=== PATIENT | male | born 1960 | race Caucasian/White ===

== ENCOUNTER 2017-03-27 23:33 | Inpatient (IN) | payer OTHER ==
[~2017-03-27] VITALS: Ht 152.4 cm; Wt 74.8 kg
--- NOTE | ~2017-03-27 | CN ---
Consultation Report [facility] [address] [place]. [address] NAME: FRANCISCO GORDON V : 62 STATUS : ADM IN PAT#: [id number] AGE: 57 ADM/REG DATE : 03/28/17 MR#: [id number] REPORT SERV DATE: 04/08/17 DICTATED BY: JESSICA NOVAK DATE: 04/07/17 REPORT STATUS : Draft TRANSCRIBED BY: MODL DATE: 04/07/17 INFECTIOUS DISEASE CONSULT DATE OF CONSULTATION: 04/07/2017 REASON FOR CONSULTATION: Fevers. HISTORY OF PRESENT ILLNESS: This is a 57-year-old man, known to me from consultation back on 03/03/2017, with a past medical history notable for severe stroke in August with resultant hemiparesis and some degree of encephalopathy and chronic tracheostomy. The patient now is on his third admission here since February. He had been in the hospital again from 03/20/2017 through 03/26/2017 and felt to have possible healthcare-associated pneumonia with Acinetobacter and possibly . He received vancomycin and Unasyn in the hospital and was discharged on continued Unasyn, but returned to the hospital on 03/28/2017 with some low-grade fever and worsening respiratory status and was continued on the Unasyn. When sputum culture grew Acinetobacter and MRSA, vancomycin was added on 04/01/2017. The patient's initial chest x-ray though was not very impressive. He did though develop worsening fevers, starting on 03/31/2017 and really has had continued fevers since then. His white blood cell count went up to 19.6 on 04/02/2017, then declined and now is back up again today. He had worsening of his respiratory status yesterday and was transferred from the IM to the MICU. His chest x-rays also have worsened with increasing bibasilar changes, especially on the right. Finally, his procalcitonin has gone from 0.63 on 04/02/2017 to 1.75 today. Repeat sputum cultures done on 04/05/2017 and 04/06/2017 have grown ESBL Klebsiella oxytoca. The patient himself cannot really contribute to the history. PAST MEDICAL HISTORY: Otherwise, unchanged from the consultation of 03/03/2017 and is as noted above. He also has diabetes, chronic anxiety, gastroesophageal reflux, and a PEG tube. ALLERGIES: NO KNOWN DRUG ALLERGIES. PRESENT MEDICATIONS: In addition to the antibiotics mentioned include aspirin, Lipitor, baclofen, Plavix, guaifenesin, heparin subcutaneously, insulin sliding scale, ProAmatine, Protonix, Seroquel, Levemir. SOCIAL HISTORY AND FAMILY HISTORY: Unchanged. REVIEW OF SYSTEMS: Otherwise noncontributory. No significant diarrhea. PHYSICAL EXAMINATION: VITAL SIGNS: Maximum temperature in the last 24 hours was 102.9 yesterday. He is presently afebrile. Blood pressure 97/64, although it has varied and tends to run low even into the 80s fairly often, pulse 107. He weighs 65 kg. The patient is on the ventilator. Arterial Consultation Report [address] [place]. [address] NAME: FRANCISCO GORDON V : 62 STATUS : ADM IN [facility]#: [id number] AGE: 57 ADM/REG DATE : 03/28/17 MR#: [id number] REPORT SERV DATE: 04/08/17 DICTATED BY: JESSICA NOVAK DATE: 04/07/17 REPORT STATUS : Draft TRANSCRIBED BY: ABDOULAYE DATE: 04/07/17 blood gas earlier today pH 7.54, pCO2 of 31, pO2 185 on 50% FiO2. HEAD AND NECK: Other than his tracheostomy, it is unremarkable. LUNGS: He has coarse breath sounds and rhonchi bilaterally. CARDIAC: Regular, mildly tachycardic. No murmur, gallop, or rub. ABDOMEN: Nondistended, soft, nontender. PEG site is without signs of infection. SKIN: Without rash. EXTREMITIES: Show a PICC line placed on 03/26/2017 on last admission in the right upper extremity, covered by dressing. He has trace peripheral edema. LABORATORY STUDIES: White blood cell count 13.2, hemoglobin 7.1, platelets 258. Creatinine 1.28, it was 0.50 on admission on 03/28/2017. Microbiology studies are as outlined above. Blood cultures from yesterday negative to date. Serial chest x-rays as noted. IMPRESSION: I believe the most likely source of the patient's fever is a possible extended- spectrum beta-lactamase Klebsiella oxytoca pneumonia. His chest x-rays have worsened since admission and his white blood cell count is higher today and his procalcitonin is up. I do not see a likely source of infection otherwise, although he is at risk for PICC line infection. PLAN: We will begin meropenem and discontinue the vancomycin and Unasyn and follow with you. GHULAM/ABDOULAYE Jessica Novak M.D. / [id number] CC: Bryant Cruz M.D.
--- NOTE | ~2017-03-27 | HP ---
History And Physical [place] [id number] [facility] [place]. [address] NAME: FRANCISCO GORDON V : 62 STATUS : ADM IN [facility]#: [id number] AGE: 57 ADM/REG DATE : 03/28/17 MR#: [id number] REPORT SERV DATE: 03/28/17 DICTATED BY: VALENCIA VELAZQUEZ DATE: 03/28/17 REPORT STATUS : Draft TRANSCRIBED BY: MODL DATE: 03/28/17 DATE OF ADMISSION: 03/28/2017 REASON FOR ADMISSION: Mucus plugging. CHIEF COMPLAINT: The patient is not answering questions. HISTORY OF PRESENT ILLNESS: Mr. Gordon is a 57-year-old gentleman who was recently admitted multiple times this summer. He was seen on 02/28/2017 in a patient who has multiple strokes and noted to have urinary tract infection. At that time, he was admitted and discharged for about 2 weeks. He was eventually found to have sepsis with ESBL and respiratory failure. Recently, the patient was readmitted on 03/20/2017 with worsening respiratory failure. At that time, the patient was on trach collar trial, but had recurrent pneumonia. He was admitted and discharged about a week later. Pulmonary saw the patient during that last hospitalization and felt that the patient will need tracheostomy for more time due to inability to clear secretions. Unfortunately, the patient was discharged just a couple days prior to coming back this time around and seems to have had a large mucus plug, which took the staff some time to break up. He is requiring suctioning around once an hour. We reviewed his discharge medications. He is only on albuterol. Otherwise, at the outside hospital, the patient had a mild leukocytosis and mild elevation of troponin, but increased CRP. Lactate was normal. Blood gas showed respiratory alkalosis, however. PAST MEDICAL HISTORY: Multiple strokes, chronic respiratory failure, atrial flutter, history of non-ST elevation NC, recurrent urinary tract infections, recurrent pneumonia, hyperlipidemia, and PEG tube placement. HOME MEDICATIONS: Reviewed the home medication list from [facility]. ALLERGIES: NO KNOWN DRUG ALLERGIES. FAMILY HISTORY: Per record, diabetes and dementia along with stroke. SOCIAL HISTORY: No current illicit drug use. REVIEW OF SYSTEMS: Unable to obtain due to the patient's current medical status. PHYSICAL EXAMINATION: VITAL SIGNS: Temperature maximum 99.5, heart rate around 104, respiratory rate normal, currently on 8 L nasal cannula through a trach collar mask with an oxygen saturation of 97%. Blood pressure around 100 systolic. GENERAL: The patient is in a nonrespiratory failure appearance, not communicative, however. PULMONARY: Lungs are clear to auscultation with possibly some diminished breath sounds bilaterally. CARDIAC: No tachycardia, no murmurs. ABDOMEN: Soft, nontender, nondistended. History And Physical [address] [address] NAME: FRANCISCO GORDON V : 62 STATUS : ADM IN [facility]#: [id number] AGE: 57 ADM/REG DATE : 03/28/17 MR#: [id number] REPORT SERV DATE: 03/28/17 DICTATED BY: VALENCIA VELAZQUEZ DATE: 03/28/17 REPORT STATUS : Draft TRANSCRIBED BY: ABDOULAYE DATE: 03/28/17 EXTREMITIES: Peripheral pulses noted. No cyanosis. IMAGING: No current imaging on file. ASSESSMENT AND PLAN: Mr. Gordon is a 57-year-old gentleman with past medical history noted above who presents with what sounds to be mucus plugging. He was noted to have increased secretions at discharge, which was thought to be chronic. 1. Mucus plugging: Most likely secondary to chronic bronchitis and respiratory failure, on tracheostomy. I recommended that we start a bronchodilator protocol. We will also check sputum culture and ABG along with chest x-ray in the morning. Continue trach collar with 8 L/minute. 2. Possible sepsis: The patient's blood pressure does seem quite on the low side, we will give IV fluids. We will check repeat labs and ensure kidney function is adequate. We will check a lactic acid. The patient does have good capillary refill, however. We will check urinalysis. 3. Congestive heart failure: Currently, no signs of heart failure exacerbation. Continue home medications. 4. Cardiovascular disease: Continue Lipitor and Plavix. 5. FEN: Continue tube feeds. 6. Prophylaxis: Continue PPI and DVT prophylaxis. 7. Goals of care: We will discuss with family when they arrive; per record, the patient is currently full code. 8. Critical care time: 45 minutes. YAREDQ/ABDOULAYE Valencia Velazquez MD / [id number] CC: Valencia Velazquez MD
--- NOTE | ~2017-03-27 | CN ---
Consultation Report [facility] [address] [place]. [address] NAME: FRANCISCO GORDON V : 62 STATUS : ADM IN [facility]#: [id number] AGE: 57 ADM/REG DATE : 03/28/17 MR#: [id number] REPORT SERV DATE: 03/30/17 DICTATED BY: GAURAV KERR DATE: 03/30/17 REPORT STATUS : Draft TRANSCRIBED BY: MODL DATE: 03/30/17 PALLIATIVE CARE CONSULTATION DATE OF CONSULTATION: 03/30/2017 Records were reviewed. Case was reviewed with the staff, and the patient was seen and examined. ALLERGIES: LISTED NONE KNOWN. REASON FOR CONSULTATION: Clarification of goals of care, discussion regarding ongoing management and disposition. Fortunately, we were able to reach the patient's , Ebony, who lives out of town. PRESENT ILLNESS: Mr. Gordon, a 57-year-old white male has had an unbelievably difficult year. In August of this past year, he sustained a very large cerebrovascular accident which resulted in a tracheostomy. He has been in and out of a number of facilities and had multiple admissions with recurrent mucus plugging, signs of pneumonia and sepsis, and acute on chronic hypoxic respiratory failure. He has had approximately three admissions in the last 30 days because of respiratory issues. PAST MEDICAL ISSUES: Include multiple CVAs, chronic respiratory failure, atrial flutter/fibrillation, a recent non-STEMI NH, urinary tract infection, pneumonia, and a previous PEG placement. The family history is remarkable for diabetes, dementia, and previous strokes as well. SOCIAL HISTORY: At this time, Mr. Gordon is a nonsmoker, nondrinker, and is maintained on tube feeds. His support system includes his and his son who is currently in boot camp. He is disabled and currently unemployed for the last almost year. REVIEW OF SYSTEMS: GENERAL: Includes weight loss, deconditioning, some lability of mental status. He is nonverbal and not able to communicate care needs. He is dependent on others for all of his ADLs. CARDIOVASCULAR: Includes recent NH. RESPIRATORY: Includes congestion, respiratory insufficiency, oxygen supplementation, tracheostomy, and mucous plugging. GI: PEG tube in place. : Chronic Reyes. MUSCULOSKELETAL: Includes weakness and poor function involving most of his left side. NEUROLOGIC: He is cognitively noncommunicative. He follows no commands. His pain history is limited, but includes emotional, strife, and difficulty secondary to be hospitalized at multiple facilities. Consultation Report [address] [place]. [address] NAME: FRANCISCO GORDON V : 62 STATUS : ADM IN [facility]#: [id number] AGE: 57 ADM/REG DATE : 03/28/17 MR#: [id number] REPORT SERV DATE: 03/30/17 DICTATED BY: GAURAV KERR DATE: 03/30/17 REPORT STATUS : Draft TRANSCRIBED BY: ABDOULAYE DATE: 03/30/17 PHYSICAL EXAMINATION: VITAL SIGNS: Blood pressure is 103/72, his pulse is 125 and appears to be a sinus mechanism at this time, respiratory rate is 28 at rest through a tracheostomy #6, temp 99.7, his oxygen sat on 8 L trach mask is 98%. His BMI is 26. GENERAL: Today shows a well-developed gentleman, who has signs of left-sided atrophy and some contractures on the left side. He appears to have lost approximately 15 pounds in the last year that we can tell. The patient is alert and he notes that he does track me and our nurse, but is nonverbal, noncommunicative and follows no commands including things such as close your eyes or squeeze my hand. HEENT: Intact. Trach present. No hyperemia. No purulence. HEART: S1 and S2. Sinus tachycardia. No murmurs, gallops, or extra heart sounds. Pulses are preserved. RESPIRATORY: Shows coarse breath sounds with rhonchi bilaterally. GI: Positive bowel sounds. PEG tube in place in the left upper quadrant. No signs of erythema or cellulitis. : Reyes catheter. MUSCULOSKELETAL: No obvious spontaneous movements, although reports from the staff that occasional right-handed movements are seen which are nonpurposeful. NEUROLOGIC: He is left hemiplegic and does not really move anything to command or noxious stimulation. He tracks movements in the room, but again is not following any commands from myself or the nurse. SKIN: Intact. Pale with no obvious reports or documentation of breakdown or decubitus. IMPRESSION, RECOMMENDATIONS AND DISCUSSIONS: Mr. Grodon is profoundly debilitated from the cumulative effects of the sequelae of cerebrovascular accidents. He is having problems with secretion management. The palliative nurse was able to reach the who indicated that they live somewhere near [place], [place]. She has a 20-year-old son who is currently in boot camp with 2-1/2 weeks left to go and a 14-year-old in 8th grade. Both the patient and the had had some discussions about his ongoing care and life in general and after 33 years of marriage, she feels that she has a pretty good understanding of what he does and does not want. His health which took a major turn on 08/27/2016 when he had his initial stroke, has left him bed-bound, tube fed and basically really unable to participate in family life. She feels confident that her would be willing to continue his current level of care including resuscitation and replacement of a ventilator until the son gets out of boot camp and has a chance to see him and visit him. She has had several conversations with the family as well as at times with the patient whom she feels that there are times he can communicate and she is willing to have whatever life support level is necessary to maintain him in the short term. She would like him to return to the prison he came from and probably enroll in hospice at that point. Until then, she wishes him to be a full code and there is a POLST form in the chart reflecting that. Once he returns at [facility] facility in [place], [place] and has a chance to spend some time with his family. The transitioning care is contemplated. The patient's is really quite overwhelmed by the current situation and as much support Consultation Report [address] [place]. [address] NAME: FRANCISCO GORDON V : 62 STATUS : ADM IN [facility]#: [id number] AGE: 57 ADM/REG DATE : 03/28/17 MR#: [id number] REPORT SERV DATE: 03/30/17 DICTATED BY: GAURAV KERR DATE: 03/30/17 REPORT STATUS : Draft TRANSCRIBED BY: ABDOULAYE DATE: 03/30/17 as we could offer long distance was provided. I have taken liberty of ordering some guaifenesin to his regimen to try and keep his secretions from becoming problematic. At this point, I think that a full code status and continuing his current care in an attempt to get him closer to home would be appropriate. A total of 60 minutes for the consult. TONIA/ABDOULAYE Gaurav Kerr M.D. / [id number] CC: Bryant Cruz M.D.
--- NOTE | ~2017-03-27 | IDS ---
Interim Discharge Summary [facility] [address] [place]. [address] NAME: FRANCISCO GORDON V : 62 STATUS : ADM IN PAT#: [id number] AGE: 57 ADM/REG DATE : 03/28/17 MR#: [id number] REPORT SERV DATE: 04/12/17 DICTATED BY: HAYDER BELLE DATE: 04/12/17 REPORT STATUS : Draft TRANSCRIBED BY: ABDOULAYE DATE: 04/12/17 ADMISSION DATE: 03/28/2017 DISCHARGE DATE: This is a very complicated case, so I will refer you to detailed H and P done by Dr. Jimenez, discharge summary done by Dr. Leung from the patient's previous admission in March as well as consultations from Dr. Chacho Kerr and Dr. Melquiades Novak. PROBLEM LIST: 1. The patient with history of multiple CVAs, has been admitted multiple times throughout the summer with various infections and now was readmitted initially with hypoxia and mucous plugging on the . Eventually, the patient grew out ESBL Klebsiella oxytoca, was seen by Dr. Melquiades Novak of Infectious Disease, and was started on Merrem. The patient has completed his course of Merrem today on 04/12/2017 and continues to be followed by Dr. Novak. Other infections that the patient has had in March include Acinetobacter an MRSA. He was then treated with vancomycin. It was thought that the Klebsiella this time was the source of the patient's fever and worsening chest x-ray and since admission and treatment of this organism, the x-ray has somewhat improved and the patient has been afebrile. 2. The patient has a chronic trach since he has had multiple CVAs that have left him with residual left-sided hemiparesis as well as limited range of motion on the right. Dr. Castro saw the patient on 04/25/2017 and the question at that time being whether or not the patient needed continued to have a tracheostomy and it continues to be the case now. The patient has copious secretions and is unable to clear them and so I guess he does require tracheostomy. The question then becomes whether or not he could be left off the ventilator during the day and just place on the ventilator at night, secretions permitting. The patient has a tendency for mucus plugging and so then this would have to be very closely followed to whatever facility that the patient is at. But since the patient has been admitted this time, he has required constant mechanical ventilation secondary to copious secretions and pneumonia, this is very slowly being resolved, being this is very slowly resolving, however the patient still remains with copious secretions and has some volume issues probably to poor nutrition and an activity, and so it may be quite some time before the patient can remain off the ventilator if ever. 3. Ykx-EQ-mkoijxo elevation myocardial infarction. This was diagnosed as far back as February of this and given all the patient's comorbidities at that time, conservative medical management was recommended and cardiac catheterization was not pursued. 4. Nutrition is provided by tube feedings via PEG tube that the patient has had quite some time and this is working well. 5. The patient has a history of atrial flutter and fibrillation and this is stable atrial fibrillation. The patient has been in normal sinus or to sinus tachycardia and has not had any issues with atrial fibrillation since we have had him here in the unit. One of the reasons he was transferred to the [facility] to the MICU was for hypotension in need of pressors, these have been discontinued and the patient has been hemodynamically stable, although he may have some level of autonomic dysfunction and currently is on midodrine to sustain a blood pressure. 6. History of acute systolic CHF, thought to be stress cardiomyopathy with ejection Interim Discharge Summary [address] [address] NAME: FRANCISCO GORDON V : 62 STATUS : ADM IN [facility]#: [id number] AGE: 57 ADM/REG DATE : 03/28/17 MR#: [id number] REPORT SERV DATE: 04/12/17 DICTATED BY: HAYDER BELLE DATE: 04/12/17 REPORT STATUS : Draft TRANSCRIBED BY: MODL DATE: 04/12/17 fraction of 28%. At this time, the patient does appear somewhat volume overloaded on his chest x-ray, which probably is multifactorial from a low oncotic pressure. The plan will be to use SPA and Lasix to see if we can bring down some of the edema. 7. Type 2 diabetes mellitus. The patient is on a sliding scale insulin and Levemir. 8. In reviewing the consultation for palliative care done by Dr. Kerr, it appears that the patient has a 20-year-old son, who currently is in Boot [employer] and we are awaiting the son's arrival from [facility] to give son a chance to visit with his father. Code status has been discussed with the patient and his and currently he is a full code pending arrival of family as mentioned above. It is difficult to communicate with the patient himself on consistently and so the wishes him to be a full code until such time that the patient can be returned to a [facility] Facility in [place], [place], where he could be closer to family. I believe this is currently being evaluated by Case Management and will need to be confirmed once they are back at work on 04/13/2017. So basically, 1. The plan with this patient is to continue mechanical ventilation. See if at any point, he can be off the vent, although the copious secretions that the patient currently has is prohibitive. 2. Continue nutrition and diurese as tolerated to decrease the level of edema the patient has accumulated since he has been in the hospital. 3. The patient has completed his treatment with Merrem as per ID and currently is off all antibiotics. 4. Continue all supportive care including full cardiopulmonary resuscitation as required as per the 's wishes until such time that family arrives. At that point, further planning for transfer to an appropriate [facility] Facility and code status will be discussed. /MODAdelaide Hayder Belle M.D. / [id number] CC: Vickey Reardon MD
--- NOTE | ~2017-03-27 | IDS ---
Interim Discharge Summary [facility] [address] [place]. [address] NAME: FRANCISCO GORDON V : 62 STATUS : ADM IN PAT#: [id number] AGE: 57 ADM/REG DATE : 03/28/17 MR#: [id number] REPORT SERV DATE: 04/18/17 DICTATED BY: NICOLE COELHO DATE: 04/18/17 REPORT STATUS : Draft TRANSCRIBED BY: MODL DATE: 04/18/17 ADMISSION DATE: 03/28/2017 DISCHARGE DATE: PULMONARY AND CRITICAL CARE MEDICINE INTERIM DISCHARGE SUMMARY This summary will cover period from Dr. [place]'s most recent interim discharge summary performed earlier this week during Mr. Gordon's stay in MICU. Over the course of the week, he has continued to undergo attempts at ventilator weaning, which have been limited in success. He is status post tracheostomy and has had intermittent episodes of mucus plugging and copious thick secretions from his trach. He has been treated with broad-spectrum antibiotics and is being followed by Infectious Disease Service. Palliative Care has been following him along as well and have been working with his family in attempt to clarify his goals of care. There have been multiple reasons that his family have not been able to come to the hospital. The most recent family meeting, which they missed was yesterday, and was reported as because they were unable to afford gasoline to put in the car to come to the hospital. At this point, he is a full code and has been moved to the intermediate care unit for ongoing slow ventilator wean as we continue to try to clarify goals of care with his and other family members. ACTIVE PROBLEM LIST: At this point includes: 1. Acute on chronic hypoxemic respiratory failure, status post tracheostomy with ongoing thick secretions and intermittent mucus plugging. His x-ray on the morning of 04/17/2017 showed increased opacification of the left lung, felt likely secondary to mucous plugging. He underwent increase in PEEP and CPT, and copious secretions were suctioned from his trach and actually later in the day, a film showed improved aeration of the left upper lung zone and the plan is to continue to perform chest percussion with the hope that we will continue to mobilize the mucus and improve aeration of his left lung. The Pulmonology Service has already been consulted to follow along in the intermediate care unit and we may ultimately need to perform a flexible fiberoptic bronchoscopy to facilitate mucus clearance if he develops worsening opacification of the left lung in the next couple of days. 2. Status post multiple CVAs with severe physical deconditioning, adult failure to thrive, and essentially bed-bound state. 3. Intermediate atrial fib and flutter. He is currently in normal sinus rhythm. 4. Type 2 diabetes mellitus with intermittent episodes of hyperglycemia. He is currently controlled on Levemir and sliding scale insulin for correction. 5. Recent ESBL Klebsiella pneumonia. 6. Hypervolemia, status post diuresis. He is on 1 mg q.8 of Bumex ongoing. 7. Coronary artery disease. He is on Plavix and aspirin as well as a statin. May consider adding back a beta-lavelle pending more stability in his blood pressure. 8. Intermittent episodes of agitation. He is on Seroquel nightly, which has improved the agitation and we will continue that. 9. Prophylaxis, subcutaneous heparin 5000 units subcutaneous q.8 and pantoprazole IV for Interim Discharge Summary [address] [address] NAME: FRANCISCO GORDON V : 62 STATUS : ADM IN [facility]#: [id number] AGE: 57 ADM/REG DATE : 03/28/17 MR#: [id number] REPORT SERV DATE: 04/18/17 DICTATED BY: NICOLE COELHO DATE: 04/18/17 REPORT STATUS : Draft TRANSCRIBED BY: ABDOULAYE DATE: 04/18/17 stress ulcer prophylaxis. 10.He has morning labs ordered for tomorrow and has moved to the intermediate care unit bed 1, where he will be picked up by the Hospital Medicine Service. We have already notified the navigator via text message that he will need to be picked up. Pulmonary has been consulted to follow along, and his was updated several times this week by Dr. [place] and myself via telephone. He is a full code. Please call with questions. ELENI/ABDOULAYE Nicole Coelho MD / [phone] CC: Bryant Cruz M.D.
[~2017-03-27 23:33] MED LIST: ACETSUP650 PR; ACETUDL PEG; ALBUTEROL0.083 % INH; ASAB PEG; BACDS PO; BACTRIM DS1 TAB PEG; DUONEB INH; L20 PEG; LEVEMFLXPN SC; LEVEMIR SC; LIOR10 PEG; LIPITOR80 MG PEG; LOVENOX40 SC; NEXIUM40 MG PEG; NOVOLOG; NOVOLOG SC; NOVOPEN SC; PERI-COLACE1 TAB PO; PLAVIX PEG; PRIN2.5 PEG; PROTONIX PEG; ROCEPH IM; SENTAB PEG; SEROQUEL25 PEG; X5 PEG; ZESTRIL2.5 MG PEG; ZOFRAN4 PEG
[2017-03-28 04:24] LABS: ALLENS TEST Pos; BE (BASE EXCESS) 3.9 MEQ/L (0 +/- 2.5); CARBOXYHEMOGLOBIN 0.4 % (0-3); DEVICE TM; HCO3 (ACTUAL BICARBONATE) 27.6 MEQ/L (23-27); HEMOBLOGIN CONTENT 9.6 G/DL (14-18); INSTRUMENT SERIAL # 11843; METHEMOGLOBIN 0.4 % (0-3); O2 CONTENT 11.7 VOL% (18-24); OPERATOR ID 13415; PCO2 (CO2 TENSION) 38 MMHG (35-45); PO2 (O2 TENSION) 57 MMHG (79-93); SAMPLE Arterial; pH 7.48 (7.37-7.43)
[2017-03-28 05:35] LABS: ASCORBIC ACID (UR NOT ORDER) 40 (NEG); BILIRUBIN, URINE NEGATIVE (NEG); KETONE, URINE TRACE MG/DL (NEG); LEUKOCYTE ESTERASE(NOT OR NEG (NEG); WBC (NOT ORDERED) (RFLEX) 1 (0-5)
[2017-03-28 09:29] LABS: BASOPHILS 0.4 %; BASOPHILS ABSOLUTE 0.04 10/3/uL (0.0-0.16); EOSINOPHILS 1.4 %; EOSINOPHILS ABSOLUTE 0.15 10/3/uL (0.0-0.53); HEMATOCRIT 29.2 % (40.0-51.0); HEMOGLOBIN 8.9 g/dL (13.6-17.8); IMMATURE GRANULOCYTES 0.6 %; IMMATURE GRANULOCYTES ABSOLUTE 0.07 10/3/uL (0.0-0.11); LYMPHOCYTES 15.1 %; LYMPHOCYTES ABSOLUTE 1.63 10/3/uL (0.67-4.30); MEAN CORPUS HGB CONC 30.5 g/dL (32.0-36.0); MEAN CORPUSCULAR HEMOGLOB 25.9 pg (26.0-34.0); MEAN CORPUSCULAR VOLUME 84.9 fL (80-100); MEAN PLATELET VOLUME 10.4 fL (9.2-13.0); MONOCYTES 6.3 %; MONOCYTES ABSOLUTE 0.68 10/3/uL (0.21-1.20); NEUTROPHILS 76.2 %; NEUTROPHILS ABSOLUTE 8.24 10/3/uL (2.02-8.40); PLATELET COUNT 285 10/3/uL (150-400); RBC DISTRIBUTION WIDTH 18.2 % (12.0-16.0); RED CELL COUNT 3.44 10/6/uL (4.7-6.1); WHITE BLOOD CELLS 10.8 10/3/uL (4.5-10.5)
[2017-03-28 09:37] LABS: MANUAL DIFF NO %
[2017-03-28 09:42] LABS: BUN (BLOOD UREA NITROGEN) 16 MG/DL (6-23); CALCIUM, SERUM 8.4 MG/DL (8.5-10.4); CHLORIDE, SERUM 108 MMOL/L (96-112); CO2 (CARBON DIOXIDE) 28 MMOL/L (24-34); GFR AFRICAN AMERICAN 140 ML/MIN (>=60); GFR NON AFRICAN AMERICAN 121 ML/MIN (>=60); GLUCOSE, SERUM 125 MG/DL (60-99); POTASSIUM, SERUM 3.8 MMOL/L (3.5-5.3); SODIUM, SERUM 143 MMOL/L (135-148)
[2017-03-29 03:45] LABS: BASOPHILS 0.4 %; BASOPHILS ABSOLUTE 0.03 10/3/uL (0.0-0.16); EOSINOPHILS 2.7 %; EOSINOPHILS ABSOLUTE 0.22 10/3/uL (0.0-0.53); HEMATOCRIT 30.9 % (40.0-51.0); HEMOGLOBIN 9.4 g/dL (13.6-17.8); IMMATURE GRANULOCYTES 0.9 %; IMMATURE GRANULOCYTES ABSOLUTE 0.07 10/3/uL (0.0-0.11); LYMPHOCYTES 20.9 %; LYMPHOCYTES ABSOLUTE 1.68 10/3/uL (0.67-4.30); MANUAL DIFF NO %; MEAN CORPUS HGB CONC 30.4 g/dL (32.0-36.0); MEAN CORPUSCULAR HEMOGLOB 26.3 pg (26.0-34.0); MEAN CORPUSCULAR VOLUME 86.3 fL (80-100); MEAN PLATELET VOLUME 10.6 fL (9.2-13.0); MONOCYTES ABSOLUTE 0.72 10/3/uL (0.21-1.20); NEUTROPHILS 66.1 %; NEUTROPHILS ABSOLUTE 5.32 10/3/uL (2.02-8.40); PLATELET COUNT 289 10/3/uL (150-400); RED CELL COUNT 3.58 10/6/uL (4.7-6.1)
[2017-03-29 03:59] LABS: PHOSPHORUS, SERUM 3.1 MG/DL (2.5-4.5); POTASSIUM, SERUM 3.3 MMOL/L (3.5-5.3)
[2017-03-29 04:55] LABS: BUN (BLOOD UREA NITROGEN) 14 MG/DL (6-23); CALCIUM, SERUM 8.3 MG/DL (8.5-10.4); CHLORIDE, SERUM 112 MMOL/L (96-112); CO2 (CARBON DIOXIDE) 27 MMOL/L (24-34); CREATININE 0.34 MG/DL (0.70-1.30); GFR AFRICAN AMERICAN 165 ML/MIN (>=60); GFR NON AFRICAN AMERICAN 142 ML/MIN (>=60); SODIUM, SERUM 146 MMOL/L (135-148)
[2017-03-29 04:59] LABS: GLUCOSE, SERUM 14 MG/DL (60-99)
[2017-03-29] MEDS ORDERED: T PEG (11:04)
[2017-03-29] MEDS ORDERED: ALBUTEROL0.083 % INH (11:04)
[2017-03-29] MEDS ORDERED: ATROVENTUD INH (11:05)
[2017-03-29] MEDS ORDERED: NORCO1 TA1 PEG (11:05)
[2017-03-29] MEDS ORDERED: X5 PEG (11:05)
[2017-03-29] MEDS ORDERED: SENTAB PEG (11:06)
[2017-03-29] MEDS ORDERED: ZOFRAN4 PEG (11:06)
[2017-03-29] MEDS ORDERED: SEROQUEL25 PEG (11:06)
[2017-03-29] MEDS ORDERED: PLAVIX PEG (11:07)
[2017-03-29] MEDS ORDERED: LIOR10 PEG (11:07)
[2017-03-29] MEDS ORDERED: LIPITOR80 MG PEG (11:07)
[2017-03-29] MEDS ORDERED: ASAB PEG (11:07)
[2017-03-29] MEDS ORDERED: LOP25 PEG (11:07)
[2017-03-29] MEDS ORDERED: LOVENOX40 SC (11:08)
[2017-03-29] MEDS ORDERED: PEP20 PEG (11:08)
[2017-03-29] MEDS ORDERED: LEVEMIR SC (11:08)
[2017-03-29] MEDS ORDERED: NOVOLOG SC (11:09)
[2017-03-29] MEDS ORDERED: UNASYN IM (11:24)
[2017-03-30 05:42] LABS: BASOPHILS 0.3 %; BASOPHILS ABSOLUTE 0.03 10/3/uL (0.0-0.16); EOSINOPHILS 1.5 %; EOSINOPHILS ABSOLUTE 0.13 10/3/uL (0.0-0.53); HEMATOCRIT 29.1 % (40.0-51.0); HEMOGLOBIN 9.1 g/dL (13.6-17.8); IMMATURE GRANULOCYTES 0.5 %; IMMATURE GRANULOCYTES ABSOLUTE 0.04 10/3/uL (0.0-0.11); LYMPHOCYTES 16.9 %; MEAN CORPUS HGB CONC 31.3 g/dL (32.0-36.0); MEAN CORPUSCULAR HEMOGLOB 26.6 pg (26.0-34.0); MEAN CORPUSCULAR VOLUME 85.1 fL (80-100); MEAN PLATELET VOLUME 10.7 fL (9.2-13.0); MONOCYTES 7.3 %; MONOCYTES ABSOLUTE 0.65 10/3/uL (0.21-1.20); NEUTROPHILS 73.5 %; NEUTROPHILS ABSOLUTE 6.52 10/3/uL (2.02-8.40); PLATELET COUNT 334 10/3/uL (150-400); RBC DISTRIBUTION WIDTH 18.2 % (12.0-16.0); RED CELL COUNT 3.42 10/6/uL (4.7-6.1); WHITE BLOOD CELLS 8.9 10/3/uL (4.5-10.5)
[2017-03-30 05:43] LABS: MANUAL DIFF NO %
[2017-03-30 06:06] LABS: A/G RATIO 0.5 (0.7-1.9); ALBUMIN 1.9 G/DL (3.5-5.0); BUN (BLOOD UREA NITROGEN) 12 MG/DL (6-23); CALCIUM, SERUM 8.4 MG/DL (8.5-10.4); CHLORIDE, SERUM 109 MMOL/L (96-112); CO2 (CARBON DIOXIDE) 26 MMOL/L (24-34); GFR AFRICAN AMERICAN 154 ML/MIN (>=60); GFR NON AFRICAN AMERICAN 133 ML/MIN (>=60); POTASSIUM, SERUM 3.9 MMOL/L (3.5-5.3); SGOT(AST) 15 U/L (5-40); SGPT(ALT) 17 U/L (5-65); SODIUM, SERUM 142 MMOL/L (135-148); TOTAL BILIRUBIN 0.3 MG/DL (0-1.2); TOTAL PROTEIN 5.9 G/DL (6.0-8.5)
[2017-03-30 06:07] LABS: ALKALINE PHOSPHATASE 81 U/L (45-117); GLUCOSE, SERUM 255 MG/DL (60-99)
[2017-03-31 07:19] LABS: BASOPHILS 0.1 %; BASOPHILS ABSOLUTE 0.01 10/3/uL (0.0-0.16); EOSINOPHILS 0.2 %; EOSINOPHILS ABSOLUTE 0.03 10/3/uL (0.0-0.53); HEMATOCRIT 27.6 % (40.0-51.0); HEMOGLOBIN 8.5 g/dL (13.6-17.8); IMMATURE GRANULOCYTES 0.3 %; IMMATURE GRANULOCYTES ABSOLUTE 0.04 10/3/uL (0.0-0.11); LYMPHOCYTES 8.3 %; LYMPHOCYTES ABSOLUTE 1.12 10/3/uL (0.67-4.30); MEAN CORPUS HGB CONC 30.8 g/dL (32.0-36.0); MEAN CORPUSCULAR HEMOGLOB 26.4 pg (26.0-34.0); MEAN CORPUSCULAR VOLUME 85.7 fL (80-100); MEAN PLATELET VOLUME 10.8 fL (9.2-13.0); MONOCYTES 7.2 %; MONOCYTES ABSOLUTE 0.98 10/3/uL (0.21-1.20); NEUTROPHILS 83.9 %; NEUTROPHILS ABSOLUTE 11.34 10/3/uL (2.02-8.40); PLATELET COUNT 342 10/3/uL (150-400); RBC DISTRIBUTION WIDTH 18.5 % (12.0-16.0); RED CELL COUNT 3.22 10/6/uL (4.7-6.1)
[2017-03-31 07:20] LABS: MANUAL DIFF NO %; WHITE BLOOD CELLS 13.5 10/3/uL (4.5-10.5)
[2017-03-31 07:36] LABS: BUN (BLOOD UREA NITROGEN) 12 MG/DL (6-23); CALCIUM, SERUM 8.1 MG/DL (8.5-10.4); CHLORIDE, SERUM 109 MMOL/L (96-112); CO2 (CARBON DIOXIDE) 28 MMOL/L (24-34); CREATININE 0.57 MG/DL (0.70-1.30); GFR AFRICAN AMERICAN 133 ML/MIN (>=60); GFR NON AFRICAN AMERICAN 115 ML/MIN (>=60); SODIUM, SERUM 142 MMOL/L (135-148)
[2017-03-31 07:37] LABS: GLUCOSE, SERUM 355 MG/DL (60-99); PHOSPHORUS, SERUM 2.1 MG/DL (2.5-4.5)
[2017-04-01 06:05] LABS: BASOPHILS 0.2 %; BASOPHILS ABSOLUTE 0.03 10/3/uL (0.0-0.16); EOSINOPHILS 0.1 %; EOSINOPHILS ABSOLUTE 0.02 10/3/uL (0.0-0.53); HEMATOCRIT 27.3 % (40.0-51.0); HEMOGLOBIN 8.4 g/dL (13.6-17.8); IMMATURE GRANULOCYTES 0.3 %; IMMATURE GRANULOCYTES ABSOLUTE 0.05 10/3/uL (0.0-0.11); LYMPHOCYTES 7.1 %; LYMPHOCYTES ABSOLUTE 1.19 10/3/uL (0.67-4.30); MANUAL DIFF NO %; MEAN CORPUS HGB CONC 30.8 g/dL (32.0-36.0); MEAN CORPUSCULAR HEMOGLOB 26.6 pg (26.0-34.0); MEAN CORPUSCULAR VOLUME 86.4 fL (80-100); MEAN PLATELET VOLUME 10.7 fL (9.2-13.0); MONOCYTES 7.3 %; MONOCYTES ABSOLUTE 1.22 10/3/uL (0.21-1.20); NEUTROPHILS ABSOLUTE 14.15 10/3/uL (2.02-8.40); PLATELET COUNT 344 10/3/uL (150-400); RBC DISTRIBUTION WIDTH 18.6 % (12.0-16.0); RED CELL COUNT 3.16 10/6/uL (4.7-6.1); WHITE BLOOD CELLS 16.7 10/3/uL (4.5-10.5)
[2017-04-01 06:24] LABS: BUN (BLOOD UREA NITROGEN) 13 MG/DL (6-23); CALCIUM, SERUM 8.5 MG/DL (8.5-10.4); CHLORIDE, SERUM 110 MMOL/L (96-112); CO2 (CARBON DIOXIDE) 26 MMOL/L (24-34); CREATININE 0.65 MG/DL (0.70-1.30); GFR AFRICAN AMERICAN 126 ML/MIN (>=60); GFR NON AFRICAN AMERICAN 109 ML/MIN (>=60); GLUCOSE, SERUM 298 MG/DL (60-99); POTASSIUM, SERUM 4.1 MMOL/L (3.5-5.3); SODIUM, SERUM 143 MMOL/L (135-148)
[2017-04-02 04:18] LABS: BASOPHILS 0.2 %; BASOPHILS ABSOLUTE 0.04 10/3/uL (0.0-0.16); EOSINOPHILS 0.2 %; EOSINOPHILS ABSOLUTE 0.04 10/3/uL (0.0-0.53); HEMATOCRIT 27.5 % (40.0-51.0); HEMOGLOBIN 8.4 g/dL (13.6-17.8); IMMATURE GRANULOCYTES 0.3 %; IMMATURE GRANULOCYTES ABSOLUTE 0.05 10/3/uL (0.0-0.11); LYMPHOCYTES 8.3 %; LYMPHOCYTES ABSOLUTE 1.63 10/3/uL (0.67-4.30); MEAN CORPUS HGB CONC 30.5 g/dL (32.0-36.0); MEAN CORPUSCULAR HEMOGLOB 26.6 pg (26.0-34.0); MEAN PLATELET VOLUME 11.3 fL (9.2-13.0); MONOCYTES 6.7 %; MONOCYTES ABSOLUTE 1.32 10/3/uL (0.21-1.20); NEUTROPHILS 84.3 %; PLATELET COUNT 348 10/3/uL (150-400); RBC DISTRIBUTION WIDTH 18.9 % (12.0-16.0); RED CELL COUNT 3.16 10/6/uL (4.7-6.1); WHITE BLOOD CELLS 19.6 10/3/uL (4.5-10.5)
[2017-04-02 04:20] LABS: MANUAL DIFF NO %
[2017-04-02 04:30] LABS: BUN (BLOOD UREA NITROGEN) 16 MG/DL (6-23); CALCIUM, SERUM 8.3 MG/DL (8.5-10.4); CHLORIDE, SERUM 111 MMOL/L (96-112); CO2 (CARBON DIOXIDE) 28 MMOL/L (24-34); CREATININE 0.68 MG/DL (0.70-1.30); GFR AFRICAN AMERICAN 124 ML/MIN (>=60); GFR NON AFRICAN AMERICAN 107 ML/MIN (>=60); POTASSIUM, SERUM 3.8 MMOL/L (3.5-5.3); SODIUM, SERUM 147 MMOL/L (135-148)
[2017-04-02 04:34] LABS: GLUCOSE, SERUM 154 MG/DL (60-99)
[2017-04-02 05:10] LABS: PROCALCITONIN 0.63 ng/mL (<0.5)
[2017-04-02 20:09] LABS: ASCORBIC ACID (UR NOT ORDER) 40 (NEG); BILIRUBIN, URINE NEGATIVE (NEG); KETONE, URINE NEGATIVE (NEG); LEUKOCYTE ESTERASE(NOT OR NEG (NEG); WBC (NOT ORDERED) (RFLEX) 4 (0-5)
[2017-04-03 05:46] LABS: BUN (BLOOD UREA NITROGEN) 21 MG/DL (6-23); CALCIUM, SERUM 8.2 MG/DL (8.5-10.4); CHLORIDE, SERUM 112 MMOL/L (96-112); CO2 (CARBON DIOXIDE) 25 MMOL/L (24-34); CREATININE 0.65 MG/DL (0.70-1.30); GFR AFRICAN AMERICAN 126 ML/MIN (>=60); GFR NON AFRICAN AMERICAN 109 ML/MIN (>=60); GLUCOSE, SERUM 201 MG/DL (60-99); PHOSPHORUS, SERUM 3.1 MG/DL (2.5-4.5); POTASSIUM, SERUM 4.4 MMOL/L (3.5-5.3); SODIUM, SERUM 145 MMOL/L (135-148)
[2017-04-03 05:55] LABS: BASOPHILS 0.2 %; BASOPHILS ABSOLUTE 0.03 10/3/uL (0.0-0.16); EOSINOPHILS 1.1 %; EOSINOPHILS ABSOLUTE 0.17 10/3/uL (0.0-0.53); HEMATOCRIT 27.9 % (40.0-51.0); HEMOGLOBIN 8.3 g/dL (13.6-17.8); IMMATURE GRANULOCYTES 0.3 %; IMMATURE GRANULOCYTES ABSOLUTE 0.05 10/3/uL (0.0-0.11); LYMPHOCYTES 8.1 %; LYMPHOCYTES ABSOLUTE 1.25 10/3/uL (0.67-4.30); MEAN CORPUS HGB CONC 29.7 g/dL (32.0-36.0); MEAN CORPUSCULAR HEMOGLOB 25.9 pg (26.0-34.0); MEAN CORPUSCULAR VOLUME 86.9 fL (80-100); MONOCYTES 6.9 %; MONOCYTES ABSOLUTE 1.07 10/3/uL (0.21-1.20); NEUTROPHILS 83.4 %; NEUTROPHILS ABSOLUTE 12.88 10/3/uL (2.02-8.40); PLATELET COUNT 319 10/3/uL (150-400); RBC DISTRIBUTION WIDTH 18.8 % (12.0-16.0); RED CELL COUNT 3.21 10/6/uL (4.7-6.1); WHITE BLOOD CELLS 15.5 10/3/uL (4.5-10.5)
[2017-04-03 05:57] LABS: MANUAL DIFF NO %
[2017-04-03 06:02] LABS: PROCALCITONIN 0.74 ng/mL (<0.5)
[2017-04-04 05:32] LABS: BASOPHILS 0.2 %; BASOPHILS ABSOLUTE 0.03 10/3/uL (0.0-0.16); EOSINOPHILS 0.4 %; EOSINOPHILS ABSOLUTE 0.06 10/3/uL (0.0-0.53); HEMOGLOBIN 7.3 g/dL (13.6-17.8); IMMATURE GRANULOCYTES 0.2 %; IMMATURE GRANULOCYTES ABSOLUTE 0.03 10/3/uL (0.0-0.11); LYMPHOCYTES 9.3 %; LYMPHOCYTES ABSOLUTE 1.25 10/3/uL (0.67-4.30); MEAN CORPUS HGB CONC 30.3 g/dL (32.0-36.0); MEAN CORPUSCULAR HEMOGLOB 26.1 pg (26.0-34.0); MEAN CORPUSCULAR VOLUME 86.1 fL (80-100); MEAN PLATELET VOLUME 10.9 fL (9.2-13.0); MONOCYTES 6.9 %; MONOCYTES ABSOLUTE 0.93 10/3/uL (0.21-1.20); NEUTROPHILS ABSOLUTE 11.21 10/3/uL (2.02-8.40); PLATELET COUNT 313 10/3/uL (150-400); RBC DISTRIBUTION WIDTH 18.4 % (12.0-16.0); WHITE BLOOD CELLS 13.5 10/3/uL (4.5-10.5)
[2017-04-04 05:34] LABS: HEMATOCRIT 24.1 % (40.0-51.0); MANUAL DIFF NO %
[2017-04-04 05:44] LABS: BUN (BLOOD UREA NITROGEN) 21 MG/DL (6-23); CALCIUM, SERUM 8.2 MG/DL (8.5-10.4); CHLORIDE, SERUM 108 MMOL/L (96-112); CO2 (CARBON DIOXIDE) 27 MMOL/L (24-34); CREATININE 0.76 MG/DL (0.70-1.30); GFR AFRICAN AMERICAN 118 ML/MIN (>=60); GFR NON AFRICAN AMERICAN 102 ML/MIN (>=60); GLUCOSE, SERUM 215 MG/DL (60-99); POTASSIUM, SERUM 3.9 MMOL/L (3.5-5.3); SODIUM, SERUM 143 MMOL/L (135-148)
[2017-04-05 04:30] LABS: BASOPHILS 0.3 %; BASOPHILS ABSOLUTE 0.03 10/3/uL (0.0-0.16); EOSINOPHILS 1.1 %; EOSINOPHILS ABSOLUTE 0.13 10/3/uL (0.0-0.53); HEMATOCRIT 22.9 % (40.0-51.0); IMMATURE GRANULOCYTES 0.2 %; IMMATURE GRANULOCYTES ABSOLUTE 0.02 10/3/uL (0.0-0.11); LYMPHOCYTES 10.8 %; LYMPHOCYTES ABSOLUTE 1.28 10/3/uL (0.67-4.30); MEAN CORPUS HGB CONC 30.6 g/dL (32.0-36.0); MEAN CORPUSCULAR VOLUME 85.1 fL (80-100); MEAN PLATELET VOLUME 11.3 fL (9.2-13.0); MONOCYTES 7.4 %; MONOCYTES ABSOLUTE 0.88 10/3/uL (0.21-1.20); NEUTROPHILS 80.2 %; NEUTROPHILS ABSOLUTE 9.56 10/3/uL (2.02-8.40); PLATELET COUNT 282 10/3/uL (150-400); RBC DISTRIBUTION WIDTH 18.4 % (12.0-16.0); RED CELL COUNT 2.69 10/6/uL (4.7-6.1); WHITE BLOOD CELLS 11.9 10/3/uL (4.5-10.5)
[2017-04-05 04:32] LABS: MANUAL DIFF NO %
[2017-04-05 04:48] LABS: BUN (BLOOD UREA NITROGEN) 25 MG/DL (6-23); CALCIUM, SERUM 8.2 MG/DL (8.5-10.4); CHLORIDE, SERUM 105 MMOL/L (96-112); CO2 (CARBON DIOXIDE) 29 MMOL/L (24-34); GFR AFRICAN AMERICAN 110 ML/MIN (>=60); GFR NON AFRICAN AMERICAN 95 ML/MIN (>=60); GLUCOSE, SERUM 135 MG/DL (60-99); POTASSIUM, SERUM 3.2 MMOL/L (3.5-5.3); SODIUM, SERUM 143 MMOL/L (135-148)
[2017-04-05 15:18] LABS: ASCORBIC ACID (UR NOT ORDER) 40 (NEG); BILIRUBIN, URINE NEGATIVE (NEG); KETONE, URINE NEGATIVE (NEG); LEUKOCYTE ESTERASE(NOT OR TRACE (NEG); WBC (NOT ORDERED) (RFLEX) 31 (0-5)
[2017-04-06 04:29] LABS: BASOPHILS 0.3 %; BASOPHILS ABSOLUTE 0.03 10/3/uL (0.0-0.16); EOSINOPHILS 0.8 %; EOSINOPHILS ABSOLUTE 0.08 10/3/uL (0.0-0.53); HEMOGLOBIN 7.1 g/dL (13.6-17.8); IMMATURE GRANULOCYTES 0.4 %; IMMATURE GRANULOCYTES ABSOLUTE 0.04 10/3/uL (0.0-0.11); LYMPHOCYTES 15.8 %; LYMPHOCYTES ABSOLUTE 1.68 10/3/uL (0.67-4.30); MANUAL DIFF NO %; MEAN CORPUS HGB CONC 29.6 g/dL (32.0-36.0); MEAN CORPUSCULAR HEMOGLOB 25.4 pg (26.0-34.0); MEAN PLATELET VOLUME 12.4 fL (9.2-13.0); MONOCYTES 7.7 %; MONOCYTES ABSOLUTE 0.82 10/3/uL (0.21-1.20); NEUTROPHILS ABSOLUTE 7.99 10/3/uL (2.02-8.40); PLATELET COUNT 260 10/3/uL (150-400); RBC DISTRIBUTION WIDTH 18.3 % (12.0-16.0); RED CELL COUNT 2.79 10/6/uL (4.7-6.1); WHITE BLOOD CELLS 10.6 10/3/uL (4.5-10.5)
[2017-04-06 04:51] LABS: CALCIUM, SERUM 8.1 MG/DL (8.5-10.4); CHLORIDE, SERUM 109 MMOL/L (96-112); CO2 (CARBON DIOXIDE) 30 MMOL/L (24-34); CREATININE 1.19 MG/DL (0.70-1.30); GFR AFRICAN AMERICAN 79 ML/MIN (>=60); GFR NON AFRICAN AMERICAN 68 ML/MIN (>=60); POTASSIUM, SERUM 3.8 MMOL/L (3.5-5.3); SODIUM, SERUM 149 MMOL/L (135-148)
[2017-04-06 04:53] LABS: BUN (BLOOD UREA NITROGEN) 39 MG/DL (6-23); GLUCOSE, SERUM 213 MG/DL (60-99)
[2017-04-06 05:25] LABS: PROCALCITONIN 1.75 ng/mL (<0.5)
[2017-04-06 07:59] LABS: ALLENS TEST Pos; BE (BASE EXCESS) 6.3 MEQ/L (0 +/- 2.5); CARBOXYHEMOGLOBIN 0.6 % (0-3); HCO3 (ACTUAL BICARBONATE) 28.8 MEQ/L (23-27); HEMOBLOGIN CONTENT 7.4 G/DL (14-18); INSTRUMENT SERIAL # 8083; METHEMOGLOBIN 0.5 % (0-3); O2 CONTENT 10.4 VOL% (18-24); OPERATOR ID 31928; PCO2 (CO2 TENSION) 33 MMHG (35-45); PO2 (O2 TENSION) 117 MMHG (79-93); SAMPLE Arterial; pH 7.57 (7.37-7.43)
[2017-04-07 04:17] LABS: BE (BASE EXCESS) 3.3 MEQ/L (0 +/- 2.5); HCO3 (ACTUAL BICARBONATE) 25.8 MEQ/L (23-27); HEMOBLOGIN CONTENT 9.4 G/DL (14-18); INSTRUMENT SERIAL # 8083; METHEMOGLOBIN 0.3 % (0-3); MODE CMV; O2 CONTENT 13.5 VOL% (18-24); OPERATOR ID 14661; PCO2 (CO2 TENSION) 31 MMHG (35-45); PO2 (O2 TENSION) 185 MMHG (79-93); SAMPLE Arterial; TIDAL VOLUME 450 ML; pH 7.54 (7.37-7.43)
[2017-04-07 04:37] LABS: BUN (BLOOD UREA NITROGEN) 53 MG/DL (6-23); CHLORIDE, SERUM 110 MMOL/L (96-112); CO2 (CARBON DIOXIDE) 32 MMOL/L (24-34); CREATININE 1.42 MG/DL (0.70-1.30); GFR AFRICAN AMERICAN 64 ML/MIN (>=60); GFR NON AFRICAN AMERICAN 55 ML/MIN (>=60); GLUCOSE, SERUM 252 MG/DL (60-99); HEMATOCRIT 24.2 % (40.0-51.0); HEMOGLOBIN 7.1 g/dL (13.6-17.8); MEAN CORPUS HGB CONC 29.3 g/dL (32.0-36.0); MEAN CORPUSCULAR HEMOGLOB 25.4 pg (26.0-34.0); MEAN CORPUSCULAR VOLUME 86.7 fL (80-100); MEAN PLATELET VOLUME 12.3 fL (9.2-13.0); PHOSPHORUS, SERUM 3.4 MG/DL (2.5-4.5); PLATELET COUNT 258 10/3/uL (150-400); RBC DISTRIBUTION WIDTH 18.6 % (12.0-16.0); RED CELL COUNT 2.79 10/6/uL (4.7-6.1); SODIUM, SERUM 149 MMOL/L (135-148); WHITE BLOOD CELLS 13.2 10/3/uL (4.5-10.5)
[2017-04-07 04:38] LABS: MANUAL DIFF YES %
[2017-04-07 04:41] LABS: BAND NEUTROPHILS 3 %; LYMPHOCYTES 10 %; LYMPHOCYTES ABSOLUTE (CALC) 1.32 10/3/uL (0.67-4.30); MONOCYTES 6 %; MONOCYTES ABSOLUTE (CALC) 0.79 10/3/uL (0.21-1.20); NEUTROPHILS ABSOLUTE (CALC) 11.09 10/3/uL (2.02-8.40); SEGMENTED NEUTROPHIL (0) 81 %; TOTAL NUCLEATED CELLS 100
[2017-04-07 04:43] LABS: ANISOCYTOSIS 1+ (5-10/OIF) (0-5/OIF); GIANT PLATELET OCC; PLATELET ESTIMATE ADQ (ADEQUATE)
[2017-04-07 04:44] LABS: SPHEROCYTES FEW (3-10/OIF)
[2017-04-07 13:17] LABS: OSMOLALITY, URINE 546 MOSM/KG (50-1200)
[2017-04-07 13:19] LABS: SODIUM, URINE < 5 MEQ/L
[2017-04-07 15:47] LABS: BUN (BLOOD UREA NITROGEN) 55 MG/DL (6-23); CALCIUM, SERUM 7.8 MG/DL (8.5-10.4); CHLORIDE, SERUM 112 MMOL/L (96-112); CO2 (CARBON DIOXIDE) 30 MMOL/L (24-34); CREATININE 1.28 MG/DL (0.70-1.30); GFR AFRICAN AMERICAN 72 ML/MIN (>=60); GFR NON AFRICAN AMERICAN 62 ML/MIN (>=60); GLUCOSE, SERUM 145 MG/DL (60-99); POTASSIUM, SERUM 3.9 MMOL/L (3.5-5.3); SODIUM, SERUM 148 MMOL/L (135-148)
[2017-04-08 04:08] LABS: HEMATOCRIT 22.6 % (40.0-51.0); MEAN CORPUS HGB CONC 30.1 g/dL (32.0-36.0); MEAN CORPUSCULAR HEMOGLOB 25.9 pg (26.0-34.0); MEAN CORPUSCULAR VOLUME 85.9 fL (80-100); MEAN PLATELET VOLUME 12.5 fL (9.2-13.0); PLATELET COUNT 259 10/3/uL (150-400); RBC DISTRIBUTION WIDTH 18.4 % (12.0-16.0); RED CELL COUNT 2.63 10/6/uL (4.7-6.1); WHITE BLOOD CELLS 13.3 10/3/uL (4.5-10.5)
[2017-04-08 04:10] LABS: HEMOGLOBIN 6.8 g/dL (13.6-17.8); MANUAL DIFF YES %
[2017-04-08 04:20] LABS: BUN (BLOOD UREA NITROGEN) 54 MG/DL (6-23); CALCIUM, SERUM 7.9 MG/DL (8.5-10.4); CHLORIDE, SERUM 110 MMOL/L (96-112); CO2 (CARBON DIOXIDE) 30 MMOL/L (24-34); CREATININE 1.19 MG/DL (0.70-1.30); GFR AFRICAN AMERICAN 79 ML/MIN (>=60); GFR NON AFRICAN AMERICAN 68 ML/MIN (>=60); PHOSPHORUS, SERUM 3.9 MG/DL (2.5-4.5); POTASSIUM, SERUM 3.8 MMOL/L (3.5-5.3); SODIUM, SERUM 148 MMOL/L (135-148)
[2017-04-08 04:21] LABS: GLUCOSE, SERUM 74 MG/DL (60-99)
[2017-04-08 04:31] LABS: BAND NEUTROPHILS 3 %; BASOPHILS 1 %; BASOPHILS ABSOLUTE (CALC) 0.13 10/3/uL (0.0-0.16); HYPOCHROMIA 1+ (3-10/OIF) (0-2/OIF); LYMPHOCYTES 6 %; MONOCYTES 3 %; NEUTROPHILS ABSOLUTE (CALC) 11.97 10/3/uL (2.02-8.40); PLATELET ESTIMATE ADQ (ADEQUATE); SEGMENTED NEUTROPHIL (0) 87 %; TOTAL NUCLEATED CELLS 100
[2017-04-08 04:32] LABS: ANISOCYTOSIS 1+ (5-10/OIF) (0-5/OIF); MICROCYTES 1+ (5-10/OIF) (0-5/OIF)
[2017-04-08 04:47] LABS: HEMATOCRIT 21.9 % (40.0-51.0); HEMOGLOBIN 6.7 g/dL (13.6-17.8)
[2017-04-09 04:13] LABS: BASOPHILS 0.4 %; BASOPHILS ABSOLUTE 0.05 10/3/uL (0.0-0.16); EOSINOPHILS 3.7 %; EOSINOPHILS ABSOLUTE 0.45 10/3/uL (0.0-0.53); IMMATURE GRANULOCYTES 0.9 %; IMMATURE GRANULOCYTES ABSOLUTE 0.11 10/3/uL (0.0-0.11); LYMPHOCYTES 11.4 %; LYMPHOCYTES ABSOLUTE 1.38 10/3/uL (0.67-4.30); MEAN CORPUS HGB CONC 31.4 g/dL (32.0-36.0); MEAN CORPUSCULAR HEMOGLOB 26.8 pg (26.0-34.0); MEAN CORPUSCULAR VOLUME 85.4 fL (80-100); MEAN PLATELET VOLUME 12.9 fL (9.2-13.0); MONOCYTES ABSOLUTE 1.09 10/3/uL (0.21-1.20); NEUTROPHILS 74.6 %; NEUTROPHILS ABSOLUTE 9.06 10/3/uL (2.02-8.40); PLATELET COUNT 296 10/3/uL (150-400); RBC DISTRIBUTION WIDTH 17.8 % (12.0-16.0); RED CELL COUNT 3.02 10/6/uL (4.7-6.1); WHITE BLOOD CELLS 12.1 10/3/uL (4.5-10.5)
[2017-04-09 04:15] LABS: HEMATOCRIT 25.8 % (40.0-51.0); HEMOGLOBIN 8.1 g/dL (13.6-17.8); MANUAL DIFF NO %
[2017-04-09 04:30] LABS: BUN (BLOOD UREA NITROGEN) 54 MG/DL (6-23); CHLORIDE, SERUM 110 MMOL/L (96-112); CO2 (CARBON DIOXIDE) 27 MMOL/L (24-34); CREATININE 1.02 MG/DL (0.70-1.30); GFR AFRICAN AMERICAN 95 ML/MIN (>=60); GFR NON AFRICAN AMERICAN 82 ML/MIN (>=60); GLUCOSE, SERUM 65 MG/DL (60-99); PHOSPHORUS, SERUM 3.9 MG/DL (2.5-4.5); POTASSIUM, SERUM 4.2 MMOL/L (3.5-5.3); SODIUM, SERUM 148 MMOL/L (135-148)
[2017-04-10 04:19] LABS: BE (BASE EXCESS) 4.4 MEQ/L (0 +/- 2.5); CARBOXYHEMOGLOBIN 0.4 % (0-3); HCO3 (ACTUAL BICARBONATE) 26.9 MEQ/L (23-27); HEMOBLOGIN CONTENT 11.5 G/DL (14-18); INSTRUMENT SERIAL # 8083; METHEMOGLOBIN 0.2 % (0-3); O2 CONTENT 16.1 VOL% (18-24); PCO2 (CO2 TENSION) 33 MMHG (35-45); PO2 (O2 TENSION) 136 MMHG (79-93); pH 7.53 (7.37-7.43)
[2017-04-10 04:20] LABS: ALLENS TEST Pos; MODE CMV; OPERATOR ID 16503; SAMPLE Arterial; TIDAL VOLUME 450 ML
[2017-04-10 08:35] LABS: HEMATOCRIT 26.6 % (40.0-51.0); MANUAL DIFF YES %; MEAN CORPUS HGB CONC 30.1 g/dL (32.0-36.0); MEAN CORPUSCULAR VOLUME 86.4 fL (80-100); MEAN PLATELET VOLUME 12.4 fL (9.2-13.0); PLATELET COUNT 353 10/3/uL (150-400); RBC DISTRIBUTION WIDTH 18.4 % (12.0-16.0); RED CELL COUNT 3.08 10/6/uL (4.7-6.1)
[2017-04-10 08:44] LABS: BUN (BLOOD UREA NITROGEN) 51 MG/DL (6-23); CALCIUM, SERUM 8.2 MG/DL (8.5-10.4); CHLORIDE, SERUM 111 MMOL/L (96-112); CO2 (CARBON DIOXIDE) 27 MMOL/L (24-34); CREATININE 0.82 MG/DL (0.70-1.30); GFR AFRICAN AMERICAN 115 ML/MIN (>=60); GFR NON AFRICAN AMERICAN 99 ML/MIN (>=60); PHOSPHORUS, SERUM 3.9 MG/DL (2.5-4.5); POTASSIUM, SERUM 4.4 MMOL/L (3.5-5.3); SODIUM, SERUM 147 MMOL/L (135-148)
[2017-04-10 08:52] LABS: GLUCOSE, SERUM 113 MG/DL (60-99)
[2017-04-10 09:08] LABS: ANISOCYTOSIS 1+ (5-10/OIF) (0-5/OIF); BAND NEUTROPHILS 2 %; EOSINOPHILS 3 %; EOSINOPHILS ABSOLUTE (CALC) 0.36 10/3/uL (0.0-0.53); LYMPHOCYTES 10 %; MONOCYTES 4 %; MONOCYTES ABSOLUTE (CALC) 0.48 10/3/uL (0.21-1.20); NEUTROPHILS ABSOLUTE (CALC) 9.96 10/3/uL (2.02-8.40); PLATELET ESTIMATE ADQ (ADEQUATE); SEGMENTED NEUTROPHIL (0) 81 %; TOTAL NUCLEATED CELLS 100
[2017-04-10 09:33] LABS: PROCALCITONIN 0.88 ng/mL (<0.5)
[2017-04-11 04:14] LABS: HEMATOCRIT 26.4 % (40.0-51.0); HEMOGLOBIN 8.1 g/dL (13.6-17.8); MEAN CORPUS HGB CONC 30.7 g/dL (32.0-36.0); MEAN CORPUSCULAR HEMOGLOB 26.8 pg (26.0-34.0); MEAN CORPUSCULAR VOLUME 87.4 fL (80-100); MEAN PLATELET VOLUME 12.5 fL (9.2-13.0); PLATELET COUNT 374 10/3/uL (150-400); RBC DISTRIBUTION WIDTH 18.8 % (12.0-16.0); RED CELL COUNT 3.02 10/6/uL (4.7-6.1); WHITE BLOOD CELLS 12.7 10/3/uL (4.5-10.5)
[2017-04-11 04:17] LABS: MANUAL DIFF YES %
[2017-04-11 04:32] LABS: A/G RATIO 0.5 (0.7-1.9); ALBUMIN 1.8 G/DL (3.5-5.0); BAND NEUTROPHILS 2 %; BASOPHILS 1 %; BASOPHILS ABSOLUTE (CALC) 0.13 10/3/uL (0.0-0.16); CALCIUM, SERUM 8.5 MG/DL (8.5-10.4); CHLORIDE, SERUM 111 MMOL/L (96-112); CO2 (CARBON DIOXIDE) 28 MMOL/L (24-34); CREATININE 0.81 MG/DL (0.70-1.30); EOSINOPHILS 6 %; EOSINOPHILS ABSOLUTE (CALC) 0.76 10/3/uL (0.0-0.53); GFR AFRICAN AMERICAN 115 ML/MIN (>=60); GFR NON AFRICAN AMERICAN 99 ML/MIN (>=60); GLUCOSE, SERUM 131 MG/DL (60-99); IMMATURE GRANS ABSOLUTE (CALC) 0.38 10/3/uL (0.0-0.11); LYMPHOCYTES 15 %; LYMPHOCYTES ABSOLUTE (CALC) 1.91 10/3/uL (0.67-4.30); METAMYELOCYTES 3 %; MONOCYTES 5 %; MONOCYTES ABSOLUTE (CALC) 0.64 10/3/uL (0.21-1.20); NEUTROPHILS ABSOLUTE (CALC) 8.89 10/3/uL (2.02-8.40); POTASSIUM, SERUM 4.4 MMOL/L (3.5-5.3); SEGMENTED NEUTROPHIL (0) 68 %; SGOT(AST) 208 U/L (5-40); SGPT(ALT) 390 U/L (5-65); SODIUM, SERUM 146 MMOL/L (135-148); TOTAL NUCLEATED CELLS 100; TOTAL PROTEIN 5.8 G/DL (6.0-8.5)
[2017-04-11 04:33] LABS: ALKALINE PHOSPHATASE 133 U/L (45-117); ANISOCYTOSIS 1+ (5-10/OIF) (0-5/OIF); BUN (BLOOD UREA NITROGEN) 47 MG/DL (6-23); PLATELET ESTIMATE ADQ (ADEQUATE); POLYCHROMASIA 1+ (2-5/OIF) (0-1/OIF); TOTAL BILIRUBIN 0.8 MG/DL (0-1.2)
[2017-04-12 05:35] LABS: HEMATOCRIT 27.8 % (40.0-51.0); HEMOGLOBIN 8.3 g/dL (13.6-17.8); MEAN CORPUS HGB CONC 29.9 g/dL (32.0-36.0); MEAN CORPUSCULAR HEMOGLOB 26.1 pg (26.0-34.0); MEAN CORPUSCULAR VOLUME 87.4 fL (80-100); MEAN PLATELET VOLUME 11.9 fL (9.2-13.0); PLATELET COUNT 394 10/3/uL (150-400); RBC DISTRIBUTION WIDTH 18.8 % (12.0-16.0); RED CELL COUNT 3.18 10/6/uL (4.7-6.1); WHITE BLOOD CELLS 11.3 10/3/uL (4.5-10.5)
[2017-04-12 05:37] LABS: MANUAL DIFF YES %
[2017-04-12 05:48] LABS: A/G RATIO 0.6 (0.7-1.9); ALKALINE PHOSPHATASE 123 U/L (45-117); CALCIUM, SERUM 8.3 MG/DL (8.5-10.4); CHLORIDE, SERUM 107 MMOL/L (96-112); CO2 (CARBON DIOXIDE) 30 MMOL/L (24-34); CREATININE 0.81 MG/DL (0.70-1.30); GFR AFRICAN AMERICAN 115 ML/MIN (>=60); GFR NON AFRICAN AMERICAN 99 ML/MIN (>=60); POTASSIUM, SERUM 4.1 MMOL/L (3.5-5.3); SGOT(AST) 133 U/L (5-40); SGPT(ALT) 283 U/L (5-65); SODIUM, SERUM 145 MMOL/L (135-148); TOTAL BILIRUBIN 0.5 MG/DL (0-1.2); TOTAL PROTEIN 6.2 G/DL (6.0-8.5)
[2017-04-12 05:51] LABS: ALBUMIN 2.2 G/DL (3.5-5.0); BUN (BLOOD UREA NITROGEN) 43 MG/DL (6-23); GLUCOSE, SERUM 86 MG/DL (60-99)
[2017-04-12 06:18] LABS: PROCALCITONIN 0.75 ng/mL (<0.5)
[2017-04-12 06:41] LABS: ANISOCYTOSIS 1+ (5-10/OIF) (0-5/OIF); BAND NEUTROPHILS 5 %; EOSINOPHILS 3 %; EOSINOPHILS ABSOLUTE (CALC) 0.34 10/3/uL (0.0-0.53); IMMATURE GRANS ABSOLUTE (CALC) 0.23 10/3/uL (0.0-0.11); LYMPHOCYTES 14 %; LYMPHOCYTES ABSOLUTE (CALC) 1.58 10/3/uL (0.67-4.30); METAMYELOCYTES 2 %; MONOCYTES 6 %; MONOCYTES ABSOLUTE (CALC) 0.68 10/3/uL (0.21-1.20); NEUTROPHILS ABSOLUTE (CALC) 8.48 10/3/uL (2.02-8.40); PLATELET ESTIMATE ADQ (ADEQUATE); SEGMENTED NEUTROPHIL (0) 70 %; TOTAL NUCLEATED CELLS 100
[2017-04-12 06:42] LABS: HYPOCHROMIA 1+ (3-10/OIF) (0-2/OIF); MICROCYTES 1+ (5-10/OIF) (0-5/OIF)
[2017-04-13 05:04] LABS: HEMATOCRIT 25.4 % (40.0-51.0); HEMOGLOBIN 7.7 g/dL (13.6-17.8); MANUAL DIFF YES %; MEAN CORPUS HGB CONC 30.3 g/dL (32.0-36.0); MEAN CORPUSCULAR HEMOGLOB 26.6 pg (26.0-34.0); MEAN CORPUSCULAR VOLUME 87.9 fL (80-100); PLATELET COUNT 397 10/3/uL (150-400); RBC DISTRIBUTION WIDTH 18.6 % (12.0-16.0); RED CELL COUNT 2.89 10/6/uL (4.7-6.1)
[2017-04-13 05:17] LABS: A/G RATIO 0.6 (0.7-1.9); ALBUMIN 2.2 G/DL (3.5-5.0); BUN (BLOOD UREA NITROGEN) 40 MG/DL (6-23); CALCIUM, SERUM 8.2 MG/DL (8.5-10.4); CHLORIDE, SERUM 104 MMOL/L (96-112); CO2 (CARBON DIOXIDE) 30 MMOL/L (24-34); CREATININE 0.71 MG/DL (0.70-1.30); GFR AFRICAN AMERICAN 122 ML/MIN (>=60); GFR NON AFRICAN AMERICAN 105 ML/MIN (>=60); GLOBULIN 3.6 G/DL (2.5-4.1); POTASSIUM, SERUM 4.2 MMOL/L (3.5-5.3); SGOT(AST) 120 U/L (5-40); SGPT(ALT) 214 U/L (5-65); SODIUM, SERUM 141 MMOL/L (135-148); TOTAL BILIRUBIN 0.5 MG/DL (0-1.2); TOTAL PROTEIN 5.8 G/DL (6.0-8.5)
[2017-04-13 05:20] LABS: ALKALINE PHOSPHATASE 106 U/L (45-117); GLUCOSE, SERUM 135 MG/DL (60-99)
[2017-04-13 05:26] LABS: ANISOCYTOSIS 1+ (5-10/OIF) (0-5/OIF); BAND NEUTROPHILS 6 %; BASOPHILS 1 %; BASOPHILS ABSOLUTE (CALC) 0.09 10/3/uL (0.0-0.16); EOSINOPHILS 4 %; EOSINOPHILS ABSOLUTE (CALC) 0.36 10/3/uL (0.0-0.53); HYPOCHROMIA 1+ (3-10/OIF) (0-2/OIF); IMMATURE GRANS ABSOLUTE (CALC) 0.09 10/3/uL (0.0-0.11); LYMPHOCYTES 15 %; LYMPHOCYTES ABSOLUTE (CALC) 1.35 10/3/uL (0.67-4.30); METAMYELOCYTES 1 %; MONOCYTES 6 %; MONOCYTES ABSOLUTE (CALC) 0.54 10/3/uL (0.21-1.20); NEUTROPHILS ABSOLUTE (CALC) 6.57 10/3/uL (2.02-8.40); PLATELET ESTIMATE ADQ (ADEQUATE); SEGMENTED NEUTROPHIL (0) 67 %; TOTAL NUCLEATED CELLS 100
[2017-04-13 05:27] LABS: POLYCHROMASIA 1+ (2-5/OIF) (0-1/OIF); TOXIC GRANULATION 1+; VACUOLATED NEUTROPHILES 1+
[2017-04-14 05:29] LABS: HEMATOCRIT 25.7 % (40.0-51.0); HEMOGLOBIN 7.8 g/dL (13.6-17.8); MANUAL DIFF YES %; MEAN CORPUS HGB CONC 30.4 g/dL (32.0-36.0); MEAN CORPUSCULAR HEMOGLOB 26.5 pg (26.0-34.0); MEAN CORPUSCULAR VOLUME 87.4 fL (80-100); MEAN PLATELET VOLUME 12.3 fL (9.2-13.0); PLATELET COUNT 414 10/3/uL (150-400); RBC DISTRIBUTION WIDTH 18.4 % (12.0-16.0); RED CELL COUNT 2.94 10/6/uL (4.7-6.1); WHITE BLOOD CELLS 9.2 10/3/uL (4.5-10.5)
[2017-04-14 05:41] LABS: ALBUMIN 2.6 G/DL (3.5-5.0); BUN (BLOOD UREA NITROGEN) 41 MG/DL (6-23); CALCIUM, SERUM 8.4 MG/DL (8.5-10.4); CHLORIDE, SERUM 101 MMOL/L (96-112); CO2 (CARBON DIOXIDE) 32 MMOL/L (24-34); CREATININE 0.69 MG/DL (0.70-1.30); GFR AFRICAN AMERICAN 123 ML/MIN (>=60); GFR NON AFRICAN AMERICAN 106 ML/MIN (>=60); GLUCOSE, SERUM 169 MG/DL (60-99); PHOSPHORUS, SERUM 2.8 MG/DL (2.5-4.5); POTASSIUM, SERUM 3.9 MMOL/L (3.5-5.3); SODIUM, SERUM 140 MMOL/L (135-148)
[2017-04-14 06:04] LABS: ANISOCYTOSIS 1+ (5-10/OIF) (0-5/OIF); BAND NEUTROPHILS 4 %; BASOPHILS 1 %; BASOPHILS ABSOLUTE (CALC) 0.09 10/3/uL (0.0-0.16); EOSINOPHILS 4 %; EOSINOPHILS ABSOLUTE (CALC) 0.37 10/3/uL (0.0-0.53); LYMPHOCYTES 15 %; LYMPHOCYTES ABSOLUTE (CALC) 1.38 10/3/uL (0.67-4.30); MONOCYTES 3 %; MONOCYTES ABSOLUTE (CALC) 0.28 10/3/uL (0.21-1.20); NEUTROPHILS ABSOLUTE (CALC) 7.08 10/3/uL (2.02-8.40); PLATELET ESTIMATE SLT INC (ADEQUATE); POIKILOCYTOSIS 1+ (5-10/OIF) (0-5/OIF); SEGMENTED NEUTROPHIL (0) 73 %; STOMATOCYTES 1+ (3-10/OIF) (0-2/OIF); TOTAL NUCLEATED CELLS 100
[2017-04-14 06:05] LABS: HYPOCHROMIA 1+ (3-10/OIF) (0-2/OIF)
[2017-04-15 06:36] LABS: HEMATOCRIT 24.8 % (40.0-51.0); HEMOGLOBIN 7.5 g/dL (13.6-17.8); MANUAL DIFF YES %; MEAN CORPUS HGB CONC 30.2 g/dL (32.0-36.0); MEAN CORPUSCULAR HEMOGLOB 26.3 pg (26.0-34.0); MEAN PLATELET VOLUME 11.9 fL (9.2-13.0); PLATELET COUNT 409 10/3/uL (150-400); RBC DISTRIBUTION WIDTH 18.4 % (12.0-16.0); RED CELL COUNT 2.85 10/6/uL (4.7-6.1); WHITE BLOOD CELLS 9.7 10/3/uL (4.5-10.5)
[2017-04-15 06:49] LABS: A/G RATIO 0.7 (0.7-1.9); ALBUMIN 2.5 G/DL (3.5-5.0); ALKALINE PHOSPHATASE 111 U/L (45-117); BUN (BLOOD UREA NITROGEN) 39 MG/DL (6-23); CALCIUM, SERUM 8.3 MG/DL (8.5-10.4); CHLORIDE, SERUM 101 MMOL/L (96-112); CO2 (CARBON DIOXIDE) 36 MMOL/L (24-34); CREATININE 0.64 MG/DL (0.70-1.30); GFR AFRICAN AMERICAN 127 ML/MIN (>=60); GFR NON AFRICAN AMERICAN 109 ML/MIN (>=60); GLOBULIN 3.4 G/DL (2.5-4.1); GLUCOSE, SERUM 101 MG/DL (60-99); SGOT(AST) 90 U/L (5-40); SGPT(ALT) 158 U/L (5-65); SODIUM, SERUM 140 MMOL/L (135-148); TOTAL BILIRUBIN 0.4 MG/DL (0-1.2); TOTAL PROTEIN 5.9 G/DL (6.0-8.5)
[2017-04-15 07:08] LABS: ANISOCYTOSIS 1+ (5-10/OIF) (0-5/OIF); BAND NEUTROPHILS 2 %; EOSINOPHILS 2 %; EOSINOPHILS ABSOLUTE (CALC) 0.19 10/3/uL (0.0-0.53); LYMPHOCYTES 17 %; LYMPHOCYTES ABSOLUTE (CALC) 1.65 10/3/uL (0.67-4.30); MONOCYTES 3 %; MONOCYTES ABSOLUTE (CALC) 0.29 10/3/uL (0.21-1.20); NEUTROPHILS ABSOLUTE (CALC) 7.57 10/3/uL (2.02-8.40); PLATELET ESTIMATE SLT INC (ADEQUATE); SEGMENTED NEUTROPHIL (0) 76 %; TOTAL NUCLEATED CELLS 100
[2017-04-16 04:39] LABS: HEMATOCRIT 25.7 % (40.0-51.0); HEMOGLOBIN 7.7 g/dL (13.6-17.8); MEAN CORPUSCULAR HEMOGLOB 26.5 pg (26.0-34.0); MEAN CORPUSCULAR VOLUME 88.3 fL (80-100); PLATELET COUNT 424 10/3/uL (150-400); RBC DISTRIBUTION WIDTH 18.3 % (12.0-16.0); RED CELL COUNT 2.91 10/6/uL (4.7-6.1); WHITE BLOOD CELLS 12.1 10/3/uL (4.5-10.5)
[2017-04-16 04:54] LABS: ALBUMIN 2.8 G/DL (3.5-5.0); BUN (BLOOD UREA NITROGEN) 39 MG/DL (6-23); CALCIUM, SERUM 8.6 MG/DL (8.5-10.4); CHLORIDE, SERUM 101 MMOL/L (96-112); CO2 (CARBON DIOXIDE) 34 MMOL/L (24-34); CREATININE 0.71 MG/DL (0.70-1.30); GFR AFRICAN AMERICAN 122 ML/MIN (>=60); GFR NON AFRICAN AMERICAN 105 ML/MIN (>=60); GLUCOSE, SERUM 107 MG/DL (60-99); MANUAL DIFF YES %; PHOSPHORUS, SERUM 3.2 MG/DL (2.5-4.5); POTASSIUM, SERUM 4.1 MMOL/L (3.5-5.3); SODIUM, SERUM 142 MMOL/L (135-148)
[2017-04-16 05:39] LABS: BAND NEUTROPHILS 2 %; EOSINOPHILS 2 %; EOSINOPHILS ABSOLUTE (CALC) 0.24 10/3/uL (0.0-0.53); LYMPHOCYTES 23 %; LYMPHOCYTES ABSOLUTE (CALC) 2.78 10/3/uL (0.67-4.30); MONOCYTES 4 %; MONOCYTES ABSOLUTE (CALC) 0.48 10/3/uL (0.21-1.20); NEUTROPHILS ABSOLUTE (CALC) 8.59 10/3/uL (2.02-8.40); SEGMENTED NEUTROPHIL (0) 69 %; TOTAL NUCLEATED CELLS 100
[2017-04-16 05:40] LABS: ANISOCYTOSIS 1+ (5-10/OIF) (0-5/OIF); PLATELET ESTIMATE SLT INC (ADEQUATE)
[2017-04-17 04:40] LABS: HEMATOCRIT 24.5 % (40.0-51.0); HEMOGLOBIN 7.3 g/dL (13.6-17.8); MANUAL DIFF YES %; MEAN CORPUS HGB CONC 29.8 g/dL (32.0-36.0); MEAN CORPUSCULAR HEMOGLOB 26.2 pg (26.0-34.0); MEAN CORPUSCULAR VOLUME 87.8 fL (80-100); MEAN PLATELET VOLUME 11.8 fL (9.2-13.0); PLATELET COUNT 386 10/3/uL (150-400); RBC DISTRIBUTION WIDTH 18.5 % (12.0-16.0); RED CELL COUNT 2.79 10/6/uL (4.7-6.1); WHITE BLOOD CELLS 12.6 10/3/uL (4.5-10.5)
[2017-04-17 04:50] LABS: BUN (BLOOD UREA NITROGEN) 42 MG/DL (6-23); CALCIUM, SERUM 8.5 MG/DL (8.5-10.4); CHLORIDE, SERUM 100 MMOL/L (96-112); CO2 (CARBON DIOXIDE) 33 MMOL/L (24-34); GFR AFRICAN AMERICAN 116 ML/MIN (>=60); GFR NON AFRICAN AMERICAN 100 ML/MIN (>=60); PHOSPHORUS, SERUM 3.2 MG/DL (2.5-4.5); POTASSIUM, SERUM 3.9 MMOL/L (3.5-5.3); SODIUM, SERUM 141 MMOL/L (135-148)
[2017-04-17 04:52] LABS: GLUCOSE, SERUM 164 MG/DL (60-99)
[2017-04-17 05:01] LABS: BAND NEUTROPHILS 3 %; BASOPHILS 4 %; EOSINOPHILS 2 %; EOSINOPHILS ABSOLUTE (CALC) 0.25 10/3/uL (0.0-0.53); LYMPHOCYTES 9 %; LYMPHOCYTES ABSOLUTE (CALC) 1.13 10/3/uL (0.67-4.30); METAMYELOCYTES 1 %; MYELOCYTES 2 %; NEUTROPHILS ABSOLUTE (CALC) 10.21 10/3/uL (2.02-8.40); PROMYELOCYTES 1 % (0); SEGMENTED NEUTROPHIL (0) 78 %; TOTAL NUCLEATED CELLS 100
[2017-04-17 05:02] LABS: ANISOCYTOSIS 1+ (5-10/OIF) (0-5/OIF); HYPOCHROMIA 1+ (3-10/OIF) (0-2/OIF); PLATELET ESTIMATE ADQ (ADEQUATE); POLYCHROMASIA 1+ (2-5/OIF) (0-1/OIF)
[2017-04-18 04:31] LABS: BASOPHILS 0.6 %; BASOPHILS ABSOLUTE 0.06 10/3/uL (0.0-0.16); EOSINOPHILS 2.4 %; EOSINOPHILS ABSOLUTE 0.26 10/3/uL (0.0-0.53); HEMOGLOBIN 7.5 g/dL (13.6-17.8); IMMATURE GRANULOCYTES 0.3 %; IMMATURE GRANULOCYTES ABSOLUTE 0.03 10/3/uL (0.0-0.11); LYMPHOCYTES 16.7 %; LYMPHOCYTES ABSOLUTE 1.77 10/3/uL (0.67-4.30); MEAN CORPUSCULAR HEMOGLOB 26.2 pg (26.0-34.0); MEAN CORPUSCULAR VOLUME 87.4 fL (80-100); MEAN PLATELET VOLUME 11.6 fL (9.2-13.0); MONOCYTES 8.1 %; MONOCYTES ABSOLUTE 0.86 10/3/uL (0.21-1.20); NEUTROPHILS 71.9 %; NEUTROPHILS ABSOLUTE 7.64 10/3/uL (2.02-8.40); PLATELET COUNT 363 10/3/uL (150-400); RBC DISTRIBUTION WIDTH 18.7 % (12.0-16.0); RED CELL COUNT 2.86 10/6/uL (4.7-6.1); WHITE BLOOD CELLS 10.6 10/3/uL (4.5-10.5)
[2017-04-18 04:33] LABS: MANUAL DIFF NO %
[2017-04-18 04:47] LABS: ALBUMIN 2.6 G/DL (3.5-5.0); BUN (BLOOD UREA NITROGEN) 43 MG/DL (6-23); CALCIUM, SERUM 9.1 MG/DL (8.5-10.4); CHLORIDE, SERUM 99 MMOL/L (96-112); CO2 (CARBON DIOXIDE) 34 MMOL/L (24-34); CREATININE 0.77 MG/DL (0.70-1.30); GFR AFRICAN AMERICAN 118 ML/MIN (>=60); GFR NON AFRICAN AMERICAN 101 ML/MIN (>=60); PHOSPHORUS, SERUM 3.7 MG/DL (2.5-4.5); POTASSIUM, SERUM 4.1 MMOL/L (3.5-5.3); SODIUM, SERUM 140 MMOL/L (135-148)
[2017-04-18 04:50] LABS: GLUCOSE, SERUM 130 MG/DL (60-99)
[2017-04-18 05:26] LABS: PROCALCITONIN 0.63 ng/mL (<0.5)
[2017-04-19 05:19] LABS: BASOPHILS 0.4 %; BASOPHILS ABSOLUTE 0.04 10/3/uL (0.0-0.16); EOSINOPHILS 3.5 %; EOSINOPHILS ABSOLUTE 0.32 10/3/uL (0.0-0.53); HEMATOCRIT 24.6 % (40.0-51.0); HEMOGLOBIN 7.2 g/dL (13.6-17.8); IMMATURE GRANULOCYTES 0.4 %; IMMATURE GRANULOCYTES ABSOLUTE 0.04 10/3/uL (0.0-0.11); LYMPHOCYTES 20.5 %; LYMPHOCYTES ABSOLUTE 1.89 10/3/uL (0.67-4.30); MEAN CORPUS HGB CONC 29.3 g/dL (32.0-36.0); MEAN CORPUSCULAR HEMOGLOB 25.9 pg (26.0-34.0); MEAN CORPUSCULAR VOLUME 88.5 fL (80-100); MEAN PLATELET VOLUME 11.8 fL (9.2-13.0); MONOCYTES 7.3 %; MONOCYTES ABSOLUTE 0.67 10/3/uL (0.21-1.20); NEUTROPHILS 67.9 %; NEUTROPHILS ABSOLUTE 6.25 10/3/uL (2.02-8.40); PLATELET COUNT 348 10/3/uL (150-400); RBC DISTRIBUTION WIDTH 18.5 % (12.0-16.0); RED CELL COUNT 2.78 10/6/uL (4.7-6.1); WHITE BLOOD CELLS 9.2 10/3/uL (4.5-10.5)
[2017-04-19 05:20] LABS: MANUAL DIFF NO %
[2017-04-19 05:32] LABS: BUN (BLOOD UREA NITROGEN) 43 MG/DL (6-23); CHLORIDE, SERUM 98 MMOL/L (96-112); CO2 (CARBON DIOXIDE) 36 MMOL/L (24-34); CREATININE 0.67 MG/DL (0.70-1.30); FERRITIN 577 NG/ML (26-388); GFR AFRICAN AMERICAN 124 ML/MIN (>=60); GFR NON AFRICAN AMERICAN 107 ML/MIN (>=60); PHOSPHORUS, SERUM 4.1 MG/DL (2.5-4.5); POTASSIUM, SERUM 3.8 MMOL/L (3.5-5.3); SODIUM, SERUM 139 MMOL/L (135-148)
[2017-04-19 05:34] LABS: GLUCOSE, SERUM 91 MG/DL (60-99)
[2017-04-19 06:00] LABS: PROCALCITONIN 0.53 ng/mL (<0.5)
[2017-04-20 05:34] LABS: BUN (BLOOD UREA NITROGEN) 42 MG/DL (6-23); CALCIUM, SERUM 8.7 MG/DL (8.5-10.4); CHLORIDE, SERUM 97 MMOL/L (96-112); CO2 (CARBON DIOXIDE) 35 MMOL/L (24-34); CREATININE 0.66 MG/DL (0.70-1.30); GFR AFRICAN AMERICAN 125 ML/MIN (>=60); GFR NON AFRICAN AMERICAN 108 ML/MIN (>=60); PHOSPHORUS, SERUM 3.8 MG/DL (2.5-4.5); SODIUM, SERUM 138 MMOL/L (135-148)
[2017-04-20 05:35] LABS: HEMATOCRIT 24.7 % (40.0-51.0); HEMOGLOBIN 7.3 g/dL (13.6-17.8); MANUAL DIFF YES %; MEAN CORPUS HGB CONC 29.6 g/dL (32.0-36.0); MEAN CORPUSCULAR HEMOGLOB 26.3 pg (26.0-34.0); MEAN CORPUSCULAR VOLUME 88.8 fL (80-100); MEAN PLATELET VOLUME 11.9 fL (9.2-13.0); PLATELET COUNT 352 10/3/uL (150-400); RBC DISTRIBUTION WIDTH 18.6 % (12.0-16.0); RED CELL COUNT 2.78 10/6/uL (4.7-6.1)
[2017-04-20 05:36] LABS: GLUCOSE, SERUM 182 MG/DL (60-99)
[2017-04-20 06:05] LABS: EOSINOPHILS 4 %; LYMPHOCYTES 16 %; MONOCYTES 5 %; SEGMENTED NEUTROPHIL (0) 75 %; TOTAL NUCLEATED CELLS 100
[2017-04-20 06:07] LABS: ANISOCYTOSIS 1+ (5-10/OIF) (0-5/OIF); PLATELET ESTIMATE ADQ (ADEQUATE); POIKILOCYTOSIS 1+ (5-10/OIF) (0-5/OIF); STOMATOCYTES 1+ (3-10/OIF) (0-2/OIF)
== END 2017-04-20 18:18 | disposition expired | DRG 207 ==
LOC: ENRESERVTM → ENRESERVDT → ENRESERV → IMCU 03-28 02:21 → CVICU 03-28 02:21 → MIC 03-28 02:21 → IMCU 03-29 12:49 → MIC 04-06 15:12 → IMCU 04-18 01:53
PROVIDERS: Internal Medicine; Internal Medicine Critical Care Medicine; Internal Medicine Pulmonary Disease
PROC: 5A1955Z Respiratory Ventilation, Greater than 96 Consecutive Hours (ICD-10-PCS; principal; 2017-04-06)
PROC: 30243N1 Transfusion of Nonautologous Red Blood Cells into Central Vein, Percutaneous Approach (ICD-10-PCS; 2017-04-08)
DX: J15.0 Pneumonia due to Klebsiella pneumoniae (principal); K72.00 Acute and subacute hepatic failure without coma; G93.40 Encephalopathy, unspecified; E43 Unspecified severe protein-calorie malnutrition; N17.9 Acute kidney failure, unspecified; J96.21 Acute and chronic respiratory failure with hypoxia; L89.153 Pressure ulcer of sacral region, stage 3; T17.890A Other foreign object in other parts of respiratory tract causing asphyxiation, initial encounter; I95.9 Hypotension, unspecified; J96.22 Acute and chronic respiratory failure with hypercapnia; I69.354 Hemiplegia and hemiparesis following cerebral infarction affecting left non-dominant side; I50.22 Chronic systolic (congestive) heart failure; I42.8 Other cardiomyopathies; J69.0 Pneumonitis due to inhalation of food and vomit; Z93.0 Tracheostomy status; E78.5 Hyperlipidemia, unspecified; I25.2 Old myocardial infarction; Z87.01 Personal history of pneumonia (recurrent); Z51.5 Encounter for palliative care; E87.70 Fluid overload, unspecified; Y95 Nosocomial condition; E11.649 Type 2 diabetes mellitus with hypoglycemia without coma; Z93.1 Gastrostomy status; F41.9 Anxiety disorder, unspecified; I25.10 Atherosclerotic heart disease of native coronary artery without angina pectoris; Z66 Do not resuscitate; J42 Unspecified chronic bronchitis; I48.2 Chronic atrial fibrillation; R62.7 Adult failure to thrive; Z68.25 Body mass index [BMI] 25.0-25.9, adult; E11.65 Type 2 diabetes mellitus with hyperglycemia; J15.212 Pneumonia due to Methicillin resistant Staphylococcus aureus; I69.391 Dysphagia following cerebral infarction; R13.10 Dysphagia, unspecified
CPT/HCPCS: 31720; 36415; 36600; 71010; 80048; 80053; 80069; 80202; 81001; 82533; 82728; 82805; 82962; 83605; 83735; 83880; 83930; 83935; 84100; 84145; 84300; 85014; 85018; 85025; 86850; 86900; 86901; 86920; 87040; 87070; 87077; 87086; 87186; 87205; 87641; 94002; 94003; 94640; 94660; 94668; A9270-GY; C9113; J0295; J2185; J3370; P9016; P9047